=== PATIENT | female | born 1990 | race Caucasian/White ===

== ENCOUNTER 2018-04-11 01:26 | Emergency (ER) | payer OTHER ==
[~2018-04-11] VITALS: Ht 175.3 cm; Wt 74.8 kg
[2018-04-11 01:30] VITALS: BP 139/81
--- NOTE | 2018-04-11 01:30 | NUR ---
PT AMBULATED TO BED 8 FOR BEDSIDE TRIAGE, URINE OBTAINED. REPORT TO NANI REDD.
--- NOTE | 2018-04-11 01:52 | NUR ---
X-RAY AT BEDSIDE AT THIS TIME.
--- NOTE | 2018-04-11 01:52 | NUR ---
X-RAY AT BEDSIDE.
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
[2018-04-11] MEDS ORDERED: IBUPROFEN 800 MG TAB PO ONE (02:00)
[2018-04-11 02:12] VITALS: BP 124/74
--- NOTE | 2018-04-11 02:16 | NUR ---
Patient discharged with v/s stable. Written and verbal after care instructions given and explained. Patient alert, oriented and verbalized understanding of instructions. Ambulatory with steady gait. All questions addressed prior to discharge. ID band removed. Patient advised to follow up with PMD. Rx of MOTRIN TID/PRN given. Patient educated on indication of medication including possible reaction and side effects. Opportunity to ask questions provided and answered.
== END 2018-04-11 02:12 | disposition home or self-care (01) ==
LOC: MED 01:26
DX: S20.211A Contusion of right front wall of thorax, initial encounter (principal); S40.021A Contusion of right upper arm, initial encounter; R03.0 Elevated blood-pressure reading, without diagnosis of hypertension; V49.59XA Passenger injured in collision with other motor vehicles in traffic accident, initial encounter; W22.12XA Striking against or struck by front passenger side automobile airbag, initial encounter; Y93.89 Activity, other specified; Y92.488 Other paved roadways as the place of occurrence of the external cause; Y99.8 Other external cause status
CPT/HCPCS: 71045; 81025; 99283; Q0092